=== PATIENT | female | born 1955 | race Caucasian/White ===

== ENCOUNTER → 2018-02-14 | Day surgery (SDC) | payer OTHER ==
[2018-02-07 10:50] LABS: BASOPHILS # (AUTO) 0.1 (0.0-0.1); BASOPHILS % 0.7 % (0.0-1.0); EOSINOPHILS # (AUTO) 0.3 (0.0-0.4); EOSINOPHILS % 3.2 % (0.0-6.0); HEMATOCRIT 43.8 % (34.2-44.1); HEMOGLOBIN 14.6 g/dL (12.0-16.0); LYMPHOCYTES # (AUTO) 4.1 (1.0-3.2); LYMPHOCYTES % 46.6 % (18.0-39.1); MEAN CORPUSCULAR HEMOGLOBIN 30.3 pg (28-32); MEAN CORPUSCULAR HGB CONC 33.3 g/dL (31-35); MEAN CORPUSCULAR VOLUME 90.9 fL (81-99); MONOCYTES # (AUTO) 0.5 (0.2-0.8); NEUTROPHILS # (AUTO) 3.8 (2.1-6.9); NEUTROPHILS % 43.3 % (38.7-80.0); PLATELET COUNT 285 x10e3/uL (140-360); RED BLOOD COUNT 4.82 x10e6/uL (3.6-5.1)
[~2018-02-14] MED LIST: ASPIRIN81 MG; CLONAZEPAM1 M1; CRESTOR10 MG; FENTANYL CITRATE/PF 100MCG/2 ML INJ ONE; HUMALOG100 UNIT/1; HYOSCYAMINE SULFATE 0.5 MG/ML AMP ONE; LEVEMIR100 UNIT/1; LEVOTHYROXINE50 MCG PO; LIDOCAINE HCL 2% LOCAL INJ 5 ML SDV VIAL INJ ONE; LISINOPRIL5 MG; MIDAZOLAM HCL 2 MG/2 ML VIAL ONE; PLAVIX75 MG PO; PROPOFOL IV EMULSION 10 MG/ML 50 ML VIAL ONE; TRAZODONE HCL50 MG PO; TRULICITY; TYLENOL WITH C1 EACH PO; ULTRAM50 MG PO
--- NOTE | 2018-02-14 10:07 | Operative Report ---
DATE OF PROCEDURE: February 14, 2018 REFERRING PHYSICIAN: Dr. Simone Jimenez. PROCEDURES PERFORMED 1. Esophagogastroduodenoscopy with biopsies. 2. Colonoscopy with polypectomy. INDICATIONS FOR EGD: Dysphagia to solids. INDICATIONS FOR COLONOSCOPY: Colorectal cancer screening. Personal history of colon polyps. MEDICATION: Patient was done under MAC. Please see anesthesiologist's note. PROCEDURE: With the patient in the left lateral decubitus position, the flexible fiberoptic Olympus gastroscope was introduced into the esophagus under direct visualization without any difficulty. There was some patchy erythema noted in the distal esophagus. Minute tongue of velvety red mucosa was noted to extend proximally from the GE junction. That was biopsied to rule out Castle's. The scope was then advanced with ease into the stomach after dilating the esophagus to size 52-Cymraes Clancy. Mucosa overlying the antrum and the body revealed some patchy erythema and mild to moderate edema, and biopsies were obtained and sent to stain for H. pylori. Pylorus appeared to be of normal contour and shape. It was intubated with ease, and the scope was advanced all the way to the 2nd portion of the duodenum. The scope was then withdrawn slowly. Mucosa overlying the proximal 2nd portion and the duodenal bulb appeared to be within normal limits. The scope was then withdrawn back into the stomach and retroflexed, and an intact Jem fundoplication was noted. The fundus appeared to be within normal limits. The scope was then straightened out. The stomach was decompressed. The scope was subsequently withdrawn. Patient tolerated the procedure well. IMPRESSION 1. Distal esophagitis, mild. 2. Rule out Castle's esophagus. 3. Esophagus dilated to size 52-Cymraes Clancy. 4. Status post Jem fundoplication. 5. Gastritis, biopsied. Biopsies sent to stain for H. pylori. PLAN: Follow up histology. Initiate Protonix 40 mg 1 p.o. q.a.m. a.c. The patient was then turned around. After adequate lubrication of the anal canal, a flexible fiberoptic Olympus colonoscope was inserted into the rectum with ease and advanced all the way to the cecum. The scope was then withdrawn slowly. Mucosa overlying the cecum, ascending colon, and transverse colon appeared to be within normal limits. Diverticular disease was noted to involve the distal descending and sigmoid colon. Two polyps were hot biopsied from the sigmoid colon. Five polyps were hot biopsied from the rectum. Scope was then retroflexed into the distal rectum, and small internal hemorrhoids were noted, none of which was actively bleeding. The scope was then straightened out. It was subsequently withdrawn. Patient tolerated the procedure well. IMPRESSION 1. Diverticulosis. 2. Sigmoid colon polyps times 2, hot biopsied. 3. Rectal polyps times 5, hot biopsied. 4. Internal hemorrhoids, none actively bleeding. PLAN: Follow up histology. Initiate high-fiber, low-fat diet. Initiate high-fiber supplement. Patient will need a followup colonoscopy in 3 years. Job#: [id number] cc:SIMONE JIMENEZ MD
== END | disposition home or self-care (01) ==
LOC: OR 06:10
PROVIDERS: ATTEND Internal Medicine Gastroenterology
DX: Z12.11 Encounter for screening for malignant neoplasm of colon (principal); K63.5 Polyp of colon; K62.1 Rectal polyp; K29.70 Gastritis, unspecified, without bleeding; K21.9 Gastro-esophageal reflux disease without esophagitis; K20.9 Esophagitis, unspecified; Z98.890 Other specified postprocedural states; K22.8 Other specified diseases of esophagus; K57.30 Diverticulosis of large intestine without perforation or abscess without bleeding; K64.8 Other hemorrhoids; J00 Acute nasopharyngitis [common cold]; I25.10 Atherosclerotic heart disease of native coronary artery without angina pectoris; I10 Essential (primary) hypertension; I25.2 Old myocardial infarction; E03.9 Hypothyroidism, unspecified; E11.9 Type 2 diabetes mellitus without complications; F41.9 Anxiety disorder, unspecified; F17.210 Nicotine dependence, cigarettes, uncomplicated; Z01.810 Encounter for preprocedural cardiovascular examination; Z01.812 Encounter for preprocedural laboratory examination; Z79.82 Long term (current) use of aspirin; Z79.4 Long term (current) use of insulin; Z79.02 Long term (current) use of antithrombotics/antiplatelets; Z68.37 Body mass index [BMI] 37.0-37.9, adult; Z98.2 Presence of cerebrospinal fluid drainage device; Z95.5 Presence of coronary angioplasty implant and graft
CPT/HCPCS: 36415 ×2; 43239; 43450; 45384; 82948; 85025; 93005; J1980; J2001; J2250; 45378

== ENCOUNTER 2020-07-30 20:54 | Emergency (ER) | payer BC ==
[~2020-07-30] VITALS: Ht 162.6 cm; Wt 86.2 kg
[~2020-07-30 20:54] MED LIST changes: -FENTANYL CITRATE/PF 100MCG/2 ML INJ ONE; -HYOSCYAMINE SULFATE 0.5 MG/ML AMP ONE; -LIDOCAINE HCL 2% LOCAL INJ 5 ML SDV VIAL INJ ONE; -MIDAZOLAM HCL 2 MG/2 ML VIAL ONE; -PROPOFOL IV EMULSION 10 MG/ML 50 ML VIAL ONE
[2020-07-30] MEDS ORDERED: FAMOTIDINE 20 MG/2 ML VIAL IV STA (21:44)
[2020-07-30] MEDS ORDERED: ONDANSETRON HCL INJ 2MG/ML 2ML 2 MG/ML VIAL IV STA (21:44)
[2020-07-30] MEDS ORDERED: LACTATED RINGER'S 1,000 ML INJ ONE (21:45)
[2020-07-30 21:49] LABS: BASOPHILS # (AUTO) 0.1 (0.0-0.1); BASOPHILS % 0.3 % (0.0-1.0); EOSINOPHILS # (AUTO) 0.1 (0.0-0.4); EOSINOPHILS % 0.4 % (0.0-6.0); HEMATOCRIT 45.9 % (34.2-44.1); HEMOGLOBIN 15.5 g/dL (12.0-16.0); LYMPHOCYTES # (AUTO) 3.8 (1.0-3.2); MEAN CORPUSCULAR HEMOGLOBIN 30.5 pg (28-32); MEAN CORPUSCULAR HGB CONC 33.8 g/dL (31-35); MEAN CORPUSCULAR VOLUME 90.4 fL (81-99); MONOCYTES # (AUTO) 1.2 (0.2-0.8); MONOCYTES % 6.3 % (4.4-11.3); NEUTROPHILS # (AUTO) 13.9 (2.1-6.9); NEUTROPHILS % 72.6 % (38.7-80.0); PLATELET COUNT 418 x10e3/uL (140-360); RED BLOOD COUNT 5.08 x10e6/uL (3.6-5.1); RED CELL DISTRIBUTION WIDTH 13.2 % (11.7-14.4)
[2020-07-30 22:28] LABS: ALBUMIN 4.3 g/dL (3.5-5.0); ALBUMIN/GLOBULIN RATIO 1.1 (0.8-2.0); ANION GAP 18.2 mmol/L (8-16); CALCIUM 9.6 mg/dL (8.4-10.2); CREATININE, SERUM 1.07 mg/dL (0.57-1.11); POTASSIUM 4.2 mmol/L (3.5-5.1)
[2020-07-30 23:22] LABS: CLARITY,URINE SL CLOUDY (CLEAR); COLOR,URINE YELLOW (YELLOW); KETONES,URINE NEGATIVE (NEGATIVE); LEUKOCYTE ESTERASE ,URINE NEGATIVE (NEGATIVE); NITRITE,URINE NEGATIVE (NEGATIVE); PROTEIN,URINE DIPSTICK 1+ (NEGATIVE); URINE UROBILINOGEN 0.2 mg/dL (0.2 - 1)
[2020-07-30 23:29] LABS: BACTERIA,URINE FEW /HPF; EPITHELIAL CELLS,URINE MODERATE /LPF; MUCUS,URINE FEW (RARE)
[2020-07-31] MEDS ORDERED: AZITHROMYCIN250 MG PO (02:06)
[2020-07-31 02:55] VITALS: BP 133/89
== END 2020-07-31 03:10 | disposition home or self-care (01) ==
LOC: ER 22:15
DX: R19.7 Diarrhea, unspecified (principal); R11.0 Nausea; I10 Essential (primary) hypertension; F41.9 Anxiety disorder, unspecified
CPT/HCPCS: 36415; 71045; 80053; 81001; 83690; 84484; 85025; 93005; 99284; J2405; J7121

== ENCOUNTER → 2024-08-08 | Day surgery (SDC) | payer BC, MEDICARE ==
[~2024-08-08] MED LIST changes: +ALBUTEROL0.63 MG/3 NEB; -ASPIRIN81 MG; +ASPIRIN81 MG PO; +AZITHROMYCIN250 MG PO; +AZO CRANBERRY250 MG PO; +BREZTRI AEROS10.7 GM INH; -CLONAZEPAM1 M1; +CLONAZEPAM1 M1 PO; +CLONAZEPAM1 MG PO; +CYCLOPENTOLATE HCL 2% OPTH SOLN 2 ML BTL OP ONE; +CYMBALTA60 MG PO; +FARXIGA10 MG PO; +FENTANYL CITRATE/PF 100MCG/2 ML INJ ONE; +FIBER LAX625 MG PO; +GATIFLOXACIN(OPTH) 5 ML LIQD ONE; +HYDROCODON-ACE1 EAC9 PO; +IMITREX50 MG PO; +LIDOCAINE HCL 2% LOCAL INJ 5 ML SDV VIAL INJ ONE; +LISINOPRIL5 MG PO; +METFORMIN HCL500 M2 PO; +METHOCARBAMOL750 MG PO; +MIDAZOLAM HCL 2 MG/2 ML VIAL ONE; +MONTELUKAST SOD10 MG PO; +NEURONTIN300 MG PO; +NOVOLIN 70100 UNIT/3 SQ; +NOVOLIN R100 UNIT/1 SQ; +ONDANSETRON ODT4 MG PO; +ONDANSETRON ODT8 MG PO; +PHENYLEPHRINE HCL 2 ML DROPS ONE; +PROPOFOL IV EMULSION 10 MG/ML 20 ML VIAL ONE; +PROTONIX20 MG PO; +TETRACAINE HCL 0.5% OPTH SOLN 4 ML BTL ONE
[2024-08-08 06:38] LABS: BASOPHILS # (AUTO) 0.1 (0.0-0.1); BASOPHILS % 0.9 % (0.0-1.0); EOSINOPHILS # (AUTO) 0.3 (0.0-0.4); EOSINOPHILS % 4.2 % (0.0-6.0); HEMATOCRIT 41.8 % (34.2-44.1); HEMOGLOBIN 13.2 g/dL (12.0-16.0); LYMPHOCYTES # (AUTO) 1.7 (1.0-3.2); LYMPHOCYTES % 25.4 % (18.0-39.1); MEAN CORPUSCULAR HEMOGLOBIN 28.7 pg (28-32); MEAN CORPUSCULAR HGB CONC 31.6 g/dL (31-35); MEAN CORPUSCULAR VOLUME 90.9 fL (81-99); MONOCYTES # (AUTO) 0.5 (0.2-0.8); MONOCYTES % 7.2 % (4.4-11.3); NEUTROPHILS # (AUTO) 4.2 (2.1-6.9); NEUTROPHILS % 61.9 % (38.7-80.0); PLATELET COUNT 384 x10e3/uL (140-360); RED CELL DISTRIBUTION WIDTH 14.1 % (11.7-14.4)
[2024-08-08 07:15] LABS: ANION GAP 16.5 mmol/L (8-16); CALCIUM 9.5 mg/dL (8.4-10.2); CREATININE, SERUM 1.14 mg/dL (0.57-1.11); POTASSIUM 4.5 mmol/L (3.5-5.1)
[2024-08-08 08:13] VITALS: TEMP 97
[2024-08-08] MEDS: LACTATED RINGER'S 1,000 ML ONE (08:22)
[2024-08-08 08:33] VITALS: BP 110/77; PULSE 76; RESP 18; O2SAT 97
== END | disposition home or self-care (01) ==
LOC: OR 05:46
PROVIDERS: ATTEND Ophthalmology
DX: H25.12 Age-related nuclear cataract, left eye (principal); E11.9 Type 2 diabetes mellitus without complications; I25.10 Atherosclerotic heart disease of native coronary artery without angina pectoris; E78.5 Hyperlipidemia, unspecified; J44.9 Chronic obstructive pulmonary disease, unspecified; K21.9 Gastro-esophageal reflux disease without esophagitis; E03.9 Hypothyroidism, unspecified; E66.9 Obesity, unspecified; F41.9 Anxiety disorder, unspecified; F32.A Depression, unspecified; F17.290 Nicotine dependence, other tobacco product, uncomplicated; Z88.2 Allergy status to sulfonamides; Z79.02 Long term (current) use of antithrombotics/antiplatelets; Z79.82 Long term (current) use of aspirin; Z79.84 Long term (current) use of oral hypoglycemic drugs; Z79.4 Long term (current) use of insulin; Z79.899 Other long term (current) drug therapy; Z95.5 Presence of coronary angioplasty implant and graft
CPT/HCPCS: 36415; 66984; 80048; 85025; 93005; J2003; J2704; J7121; V2632; J2250

== ENCOUNTER → 2025-01-21 | Outpatient (REF) | payer MEDICARE ==
[~2025-01-21] MED LIST changes: -CYCLOPENTOLATE HCL 2% OPTH SOLN 2 ML BTL OP ONE; -FENTANYL CITRATE/PF 100MCG/2 ML INJ ONE; -GATIFLOXACIN(OPTH) 5 ML LIQD ONE; -LIDOCAINE HCL 2% LOCAL INJ 5 ML SDV VIAL INJ ONE; -MIDAZOLAM HCL 2 MG/2 ML VIAL ONE; +OZEMPIC0.25 MG/02 SC; -PHENYLEPHRINE HCL 2 ML DROPS ONE; -PROPOFOL IV EMULSION 10 MG/ML 20 ML VIAL ONE; -TETRACAINE HCL 0.5% OPTH SOLN 4 ML BTL ONE
[2025-01-21 12:32] LABS: BASOPHILS % 0.6 % (0.0-1.0); EOSINOPHILS % 2.1 % (0.0-6.0); LYMPHOCYTES % 18.0 % (18.0-39.1); MONOCYTES % 5.2 % (4.4-11.3); NEUTROPHILS % 73.9 % (38.7-80.0); RED CELL DISTRIBUTION WIDTH 15.6 % (11.7-14.4)
[2025-01-21 13:04] LABS: EST GLOMERULAR FILTRATION RATE 58.0 ML/MIN (>=60)
== END ==
LOC: CARD 08:00 → EDSTATUS 01-23 11:00
PROVIDERS: ATTEND Ophthalmology
DX: H25.11 Age-related nuclear cataract, right eye (principal); Z01.810 Encounter for preprocedural cardiovascular examination; Z01.812 Encounter for preprocedural laboratory examination; E11.9 Type 2 diabetes mellitus without complications; Z79.85 Long-term (current) use of injectable non-insulin antidiabetic drugs; Z79.4 Long term (current) use of insulin
CPT/HCPCS: 36415; 80048; 85025; 93005

== ENCOUNTER → 2025-02-12 | Day surgery (SDC) | payer MEDICARE ==
[~2025-02-12] MED LIST changes: +PROPOFOL IV EMULSION 10 MG/ML 20 ML VIAL ONE
[2025-02-12] MEDS: TETRACAINE HCL 0.5% OPTH SOLN 4 ML BTL ONE (09:03)
[2025-02-12] MEDS: LACTATED RINGER'S 1,000 ML ONE (09:04)
[2025-02-12] MEDS: PHENYLEPHRINE HCL 2 ML DROPS ONE (09:06)
[2025-02-12] MEDS: CYCLOPENTOLATE HCL 2% OPTH SOLN 2 ML BTL OP ONE (09:06)
[2025-02-12] MEDS: GATIFLOXACIN(OPTH) 5 ML LIQD ONE (09:06)
[2025-02-12 11:15] VITALS: TEMP 97.5
[2025-02-12 11:45] VITALS: BP 149/91; PULSE 81; RESP 16; O2SAT 98
== END | disposition home or self-care (01) ==
LOC: OR 08:01
PROVIDERS: ATTEND Ophthalmology
DX: H25.11 Age-related nuclear cataract, right eye (principal); E11.9 Type 2 diabetes mellitus without complications; I10 Essential (primary) hypertension; I25.10 Atherosclerotic heart disease of native coronary artery without angina pectoris; E78.5 Hyperlipidemia, unspecified; J44.9 Chronic obstructive pulmonary disease, unspecified; E03.9 Hypothyroidism, unspecified; K21.9 Gastro-esophageal reflux disease without esophagitis; K44.9 Diaphragmatic hernia without obstruction or gangrene; M54.2 Cervicalgia; M54.9 Dorsalgia, unspecified; M06.9 Rheumatoid arthritis, unspecified; M19.90 Unspecified osteoarthritis, unspecified site; F41.9 Anxiety disorder, unspecified; F32.A Depression, unspecified; F17.290 Nicotine dependence, other tobacco product, uncomplicated; Z88.2 Allergy status to sulfonamides; Z79.82 Long term (current) use of aspirin; Z79.02 Long term (current) use of antithrombotics/antiplatelets; Z79.84 Long term (current) use of oral hypoglycemic drugs; Z79.85 Long-term (current) use of injectable non-insulin antidiabetic drugs; Z79.4 Long term (current) use of insulin; Z79.899 Other long term (current) drug therapy; Z95.5 Presence of coronary angioplasty implant and graft
CPT/HCPCS: 36415; 66984; 82948; J2704; J7121; V2632